=== PATIENT | female | born 1945 | race Caucasian/White ===

== ENCOUNTER 2016-05-31 12:11 | Emergency (ER) | payer OTHER, MEDICARE ==
--- NOTE | 2016-05-31 12:51 | RAD ---
EXAMINATION:WRIST- RIGHT 3 VIEWS CLINICAL INDICATION: Fall onto outstretched hand. Wrist pain. Initial encounter. COMPARISON: None FINDINGS: No fracture or focal destruction is identified. The radiocarpal and intercarpal joint space relationships of the right wrist are maintained. No soft tissue abnormality is identified. IMPRESSION: Negative radiographic examination of the right wrist.
== END 2016-05-31 13:15 | disposition home or self-care (01) ==
LOC: ED 12:11
DX: S63.501A Unspecified sprain of right wrist, initial encounter (principal); W00.0XXA Fall on same level due to ice and snow, initial encounter; Y92.9 Unspecified place or not applicable

== ENCOUNTER 2016-09-17 06:22 | Day surgery (SDC) | payer OTHER, MEDICARE ==
--- NOTE | 2016-09-16 09:05 | HP ---
DATE OF CLINIC: 09/09/2016 CRISTY REYES : 1945 PLANNED PROCEDURE: Right Long Finger Trigger Release DATE OF SURGERY: September 17, 2016 SURGEON: Hilario Edwards M.D. HISTORY OF PRESENT ILLNESS Daisy Dash is a 70 year old female. * Medication list reviewed with patient allergy list reviewed with patient. This is a 70-year-old woman seen by Archie for associated complaints, but here today to discuss pain and catching in her right long finger. She has had this for about three years. It has been increasing with time. It is preventing her from being able to do her desired activities, including her work activities. It has never gotten locked, but it is getting worse and worse and worse to the point that she does not want to do anything with this hand. She has no history of a discrete trauma. She has had no previous surgery at the site and she has had no injections. After discussion and review of treatment options, both operative and non-operative, she has elected to proceed with surgery and presents today preoperatively. PAST MEDICAL AND SURGICAL HISTORY: Past medical and surgical history are as documented on her previous notes. CURRENT MEDICATION * *Supplement Miscellaneous 1 twice a day doterracellular vitality complex, bone nutrient, essential oil omega complex, microplex VMz food nutrient, 0 days, 0 refills * Levothyroxine Sodium 75 MCG Tablet 1 once a day 1 once a day, 90 days, 2 refills * Probiotic Capsule 1 once a day 0 days, 0 refills * Singulair 10 MG Tablet 1 once a day Rx'd by derm, 0 days, 0 refills * Triamterene-HCTZ 37.5-25 MG Tablet 1 once a day 1 once a day, 90 days, 2 refills PAST MEDICAL/SURGICAL HISTORY Reported: No recent change in medical history, Last pap smear date 03/2008, Last mammogram date: 03/2008, Last colonoscopy date: 2004, and Shoulder Arthroscopy Right shoulder 10+yrs ago. Surgical / Procedural: Prior surgery Right foot neuroma excision 1yr ago 2016?. SOCIAL HISTORY Behavioral: Caffeine use yes coffee in the am, non-smoker quit smoking, and quit smoking quit 25 years ago. Smoking status: Former smoker. Alcohol: Alcohol use rarely. Home Environment: Lives with spouse. Spouse is Internal Medicine MD- works for [employer]. Medial and lateral knee pain over the last few months with worsening lately. 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 She denies a specific injury. ALLERGIES * Codeine Derivatives Reaction: Nausea/Vomiting/Diarrhea, CLAROS * Vicodin Reaction: Nausea/Vomiting/Diarrhea, CLAROS FAMILY HISTORY Family medical history Father- Cancer, Hypertension REVIEW OF SYSTEMS No recent constitutional symptoms to include fevers and chills. No recent cardiovascular symptoms to include chest pain or palpitations. No recent respiratory symptoms to include shortness of breath or recent infections. PHYSICAL FINDINGS * Vitals taken 09/09/2016 08:32 am BP-Sitting R 109/65 mmHg BP Cuff Size Regular Pulse Rate-Sitting 69 bpm Temp-Oral 98.4 F Height 64 in Weight 176 lbs Body Mass Index 30.2 kg/m2 Body Surface Area 1.85 m2 Pain Level 2 Ears, Nose, Throat: * ENT: normal. Lungs: * Clear to auscultation. Cardiovascular: Heart Rate and Rhythm: * Normal. Abdomen: * Normal. Neurological: Motor: * Dominant Hand = Right Hand. Patient is a well-developed, well-nourished female in no acute distress. They are awake, alert and conversant throughout the encounter. CARDIOVASCULAR: Intact peripheral pulses on bilateral upper extremities. No significant edema on inspection of bilateral upper extremities. NEUROLOGIC: Patient had intact coordinated composite motion of the bilateral upper extremities and sensation intact to light touch in all distributions of bilateral upper extremities. PSYCHIATRIC: Patient was oriented to person, place and time and displayed appropriate mood and affect during the encounter. SKIN: Exam of the skin on bilateral upper extremities showed no significant scars, lesions, rashes or masses. FOCUSED MUSCULOSKELETAL EXAM: The patient has normal resting station of the shoulders, elbows and wrists. Her right hand has tenderness to palpation over the flexor tendon at the region of the A1 dov. There is a palpable mass here that translates with patient's movement. She is not able to flex the finger far enough down to get it into a triggering position but you can feel that this fullness in the tendon approach the A1 dov and then bind at the same time that she has pain. The fingers are warm and well perfused with intact sensation throughout. She does not have triggering of any of her other digits and she has normal sensation. TESTS * Test: CBC NO DIFF Report Date: 09/09/2016 WBC 6.4 10*3/mL RBC 4.62 10*6/uL MCH 32.3 pg High MCHC 33.1 g/dL RDW 12.9 % MCV 97.4 fL PLATELET COUNT 253 10*3/mL HCT 45.0 % HGB 14.9 g/L * Test: COMPREHENSIVE METABOLIC PANEL Report Date: 09/09/2016 ALT/SGPT 22 U/L ALBUMIN 4.5 g/dL ALB/GLOB RATIO 1.7 BUN 16 mg/dL BUN/CREAT RATIO 18 CALCIUM 10.4 mg/dL High GLUCOSE 91 mg/dL CREATININE 0.9 mg/dL SODIUM 138 meq/L POTASSIUM 3.8 meq/L CHLORIDE 99 meq/L CARBON DIOXIDE 31 meq/L ANION GAP 12 meq/L TOT PROTEIN 7.2 g/dL GLOBULIN 2.7 g/dL BILI,TOTAL 0.5 mg/dL AST/SGOT 21 U/L ALK PHOSPHATASE 73 U/L GFR 62 IMAGING: Review of x-rays showed no bony abnormalities. 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 ASSESSMENT A 70-year-old female with right long finger triggering grade 3 at this point. THERAPY * Patient fall risk screen positive. * Patient eligible for fall risk assessment. * Patient received fall risk assessment. PLAN * Trigger finger, right middle finger Percocet 5-325 MG TABS, Take 1 tablet every 4 hours as needed for pain, 14 days, 0 refills TraMADol HCl 50 MG TABS, Take 1 tablet by mouth every 6 hours as needed for pain, 14 days, 0 refills Right long finger trigger release. CARE TEAM Lyndsay Moore M.D. [facility] SURGICAL CONSENT We have discussed surgical options including right long finger trigger release and non-operative management. The patient was counseled in detail regarding the diagnosis, treatment options available, prognosis of each treatment option and the potential risks and complications. The risks of surgery include, but are not limited to, anesthetic , neurovascular complications, pulmonary embolism, deep vein thrombosis, wound dehiscence, failure of any or all of the discussed procedures, infection of the joint or surrounding soft tissue, need for revision surgery, chronic pain, limitations in activities of daily living, inability to return to work, and loss of normal range of motion or functional use of the extremity. There is the possibility of failure over time that may require additional operative or non-operative treatment. The patient acknowledged that there are a number of perioperative risks not mentioned here and would still like to proceed. The patient is aware of and understands these risks, and wishes to proceed with the proposed surgical procedure and other procedures as indicated at the time of surgery. We will have the patient see their PCP for a preoperative medical risk assessment. The preoperative instructions were reviewed with the patient and all questions were answered. PB/sg
[~2016-09-17 06:22] MED LIST: CEFAZOLIN SODIUM 2 GRAM PREMIX 100 ML IV ONE; IV START KIT ONE; LACTATED RINGERS 1,000 ML ONE
[2016-09-17] MEDS ORDERED: CEFAZOLIN SODIUM 2 GRAM PREMIX 100 ML IV PRN (06:30)
[2016-09-17] MEDS ORDERED: IV START KIT ONE (06:34)
[2016-09-17] MEDS ORDERED: LIDOCAINE 1% (PRES FREE) 30 ML VIAL ONE (06:51)
[2016-09-17] MEDS ORDERED: BUPIVACAINE 0.5% (PRES FREE) 30 ML VIAL ONE (06:51)
[2016-09-17] MEDS ORDERED: FENTANYL 100 MCG/2 ML VIAL ONE (07:03)
[2016-09-17] MEDS ORDERED: MIDAZOLAM HCL 1 MG/ML 2ML VIAL ONE (07:04)
[2016-09-17] MEDS ORDERED: LIDOCAINE 0.5% (PRES FREE) 50 ML VIAL ONE (07:11)
[2016-09-17] MEDS ORDERED: LIDOCAINE 2% (PRES FREE) 5 ML VIAL ONE (08:12)
[2016-09-17] MEDS ORDERED: PROPOFOL 20 ML IV ONE (08:12)
[2016-09-17] MEDS ORDERED: ONDANSETRON 4 MG/2ML 2 ML VIAL ONE (08:13)
[2016-09-17] MEDS ORDERED: NALOXONE HCL 0.4 MG/ML VIAL IV PRN (08:25)
[2016-09-17] MEDS ORDERED: ATROPINE SULFATE 0.4 MG/1 ML VIAL IV PRN (08:25)
[2016-09-17] MEDS ORDERED: PROMETHAZINE HCL 25 MG/ML VIAL IM PRN (08:25)
[2016-09-17] MEDS ORDERED: FENTANYL 100 MCG/2 ML VIAL IV PRN (08:25)
[2016-09-17] MEDS ORDERED: ONDANSETRON 4 MG/2ML 2 ML VIAL IV PRN ×2 (08:25→09:23)
[2016-09-17] MEDS ORDERED: LACTATED RINGERS 1,000 ML IV SCH ×2 (08:30→09:23)
--- NOTE | 2016-09-17 08:44 | PCMBPN ---
Brief Post Op Note: Date of Procedure: 09/17/16 Start Time: 0810 Preoperative Diagnosis: 1. right long finger triggering Postoperative Diagnosis: 1. Same Procedure: right long finger A1 dov release Surgeon: Hilario Edwards MD Assist: none Anesthesia: Kj Mustafa Findings: as above Condition: stable to SDS Complications: none IV Fluids: 500 mLs of LR Urine Output: 0 mLs Estimated Blood Loss: 1 mLs Tourniquet Time: 30 min at 250 mm HG ([place] block) Specimens: none Implants: none Drains: none Hilario Edwards MD
[2016-09-17] MEDS ORDERED: TRAMADOL HCL 50 MG TABLET PO PRN (09:23)
[2016-09-17] MEDS ORDERED: ACETAMINOPHEN 325 MG TABLET PO PRN (09:23)
[2016-09-17] MEDS ORDERED: HYDROMORPHONE HCL 1 MG/ML SYRINGE IV PRN (09:23)
[2016-09-17] MEDS ORDERED: DIPHENHYDRAMINE HCL 50 MG/1 ML VIAL IV PRN (09:23)
--- NOTE | 2016-09-23 10:02 | OP ---
Dorothy REYES : 1945 [id number] DATE OF PROCEDURE: September 17, 2016 PREOPERATIVE DIAGNOSIS: Right long finger triggering. POSTOPERATIVE DIAGNOSIS: Right long finger triggering. PROCEDURE PERFORMED: RIGHT LONG FINGER A1 MALAIKA RELEASE. SURGEON: Hilario Edwards M.D. [employer] SUPERVISOR: None. ANESTHESIA: By Bao PattenNZechariah SPECIMENS: No material was sent to the laboratory. ESTIMATED BLOOD LOSS: 1 mL. FLUIDS REPLACED: 500 mL crystalloid. TOURNIQUET TIME: 30 minutes at 250 mmHg for a Elvia block. IMPLANTS: None. DRAINS: None. INDICATIONS: This is a 70-year-old right-hand dominant female who has triggering of her right long finger that interrupts her ability to participate in desired levels of activity. She has failed a course of nonoperative measures and desires a definitive surgical management. DESCRIPTION OF PROCEDURE: The patient was identified in the preoperative holding area where she was marked with an indelible marker by the operating surgeon and taken to the operating room where she was placed in the supine position on the operating room table. Perioperative antibiotics were administered. An operative time out was performed and confirmed by all members of the operative team. Her arm was elevated and exsanguinated using an Esmarch bandage and the tourniquet was inflated to 250 mmHg. Elvia block anesthesia was administered and then the IV in the back of her right hand was removed. She was prepped and draped in the usual sterile fashion for surgery. A transverse incision was made at the patient's distal palmar flexion crease. Dissection was carried down identifying the neurovascular bundles medial and laterally. These were protected. The flexor tendon sheath was identified and we exposed the proximal and distal edges of the A1 malaika. This was sharply divided using a push cut technique and the tendon was noted to glide freely. Both flexor tendons were delivered out of the wound using a Ragnell retractor. The finger was put into maximal composite flexion and then was noted to go into extension without any additional catching or clicking. At this point the wound was copiously irrigated with sterile saline and then closed with two horizontal mattress sutures of #4-0 Nylon. A sterile dressing of Xeroform, fluffs, Kerlix and an JOSE bandage was applied. The tourniquet was deflated, drapes were removed and the patient was transferred to a stretcher and taken postoperatively to the postanesthesia care unit in stable condition. There were no observed intraoperative complications during this procedure. Job [id number] Cc: [facility]
== END 2016-09-17 09:39 | disposition home or self-care (01) ==
LOC: SDC 06:22
PROVIDERS: ATTEND Orthopaedic Surgery
PROC: 0LN70ZZ Release Right Hand Tendon, Open Approach (ICD-10-PCS; principal; 2016-09-17)
DX: M65.331 Trigger finger, right middle finger (principal); Z87.891 Personal history of nicotine dependence; Z88.5 Allergy status to narcotic agent
CPT/HCPCS: 26055; A6453; J3010; A9270; J2250; J2001 ×2; J2405; J7120; J0690